=== PATIENT | male | born 1980 | race Two or more races ===

== ENCOUNTER 2023-11-20 19:54 | Emergency (ER) | payer MEDICAID ==
[~2023-11-20] VITALS: Ht 162.6 cm; Wt 69.2 kg
[2023-11-20 21:32] LABS: Urine Amorphous Crystal FEW /hpf (None Seen); Urine Bacteria FEW /hpf (None Seen); Urine Blood TRACE /uL (Negative); Urine Clarity Ex.Turbid (Clear); Urine Color Orange (Yellow); Urine Mucus FEW (None Seen); Urine Protein, UAD 2+ (Negative); Urine Specific Gravity 1.029 (1.001-1.035); Urine Urobilinogen 2 mg/dL (Negative); Urine WBC 44 /hpf (0 - 3); Urine WBC Clumps PRESENT /hpf (None Seen); Urine pH 5.5 (5.0-9.0)
[2023-11-20 23:25] LABS: Basophils # (auto) 0 10 ^3/uL (0-0.2); Basophils % (auto) 0.2 % (0.0-2.0); Eosinophils # (auto) 0 10 ^3/uL (0-0.8); Hematocrit 47.2 % (41.0-53.0); Hemoglobin 15.9 g/dL (13.5-17.5); Lymphocytes # (auto) 0.8 10 ^3/uL (0.4-5.4); Lymphocytes % (auto) 7.1 % (10.0-50.0); Mean Corpuscular Hemoglobin 29.3 pg (28.0-32.0); Mean Corpuscular Hgb Conc. 33.6 g/dL (32.0-36.0); Mean Corpuscular Volume 87.1 fL (80.0-100.0); Monocytes # (auto) 0.6 10 ^3/uL (0-1.3); Monocytes % (auto) 5.2 % (0.0-12.0); Neutrophils # (auto) 10.5 10 ^3/uL (1.6-8.6); Neutrophils % (auto) 87.5 % (37.0-80.0); Platelet Count (auto) 192 10^3/uL (140-450); Red Blood Cells 5.42 10^6/uL (4.5-5.90); Red Cell Distribution Width 14.8 % (11.8-14.3)
[2023-11-20 23:41] LABS: Albumin 4.2 g/dL (3.2-4.8); Alkaline Phosphatase 53 U/L (46-116); Anion Gap 7 (5-15); Aspartate Aminotransferase 14 U/L (13-40); Bilirubin, Total 0.2 mg/dL (0.2-1.0); Calcium 9.3 mg/dL (8.7-10.4); Carbon Dioxide 23 mmol/L (20-30); Chloride 105 mmol/L (98-107); Glucose 99 mg/dL (74-106); Lipase 33 U/L (12-53); Potassium 3.9 mmol/L (3.5-5.1); Sodium 135 mmol/L (136-145); Total Protein 6.7 g/dL (5.7-8.2)
[2023-11-20 23:49] LABS: Blood Urea Nitrogen 9 mg/dL (9-23)
[2023-11-20 23:56] LABS: Alanine Aminotransferase < 9 U/L (7-40)
[2023-11-21 00:17] LABS: BUN/Creatinine Ratio 6.5 (10.0-20.0)
[2023-11-21 01:33] LABS: Amphetamine Screen, Urine Neg (NEGATIVE); Barbiturate Scree,Urine Neg (NEGATIVE); Benzodiazephine Screen, Urine Neg (NEGATIVE); Cocaine Screen, Urine Neg (NEGATIVE)
[2023-11-21 01:34] LABS: Cannabinoid Screen, Urine Pos (NEGATIVE); Opiate Scree,Urine Neg (NEGATIVE); Phencyclidine Screen, Urine Neg (NEGATIVE)
[2023-11-21] MEDS ORDERED: LEVO500T91 PO (04:21)
[2023-11-21] MEDS ORDERED: METR-344 PO (04:21)
[2023-11-21] MEDS: levoFLOXacin 500 MG TAB PO ONE (04:29)
[2023-11-21] MEDS: metroNIDAZOLE 500 MG TAB PO ONE (04:29)
[2023-11-21 05:01] VITALS: BP 102/66; TEMP 99.3
[2023-11-21 05:02] VITALS: PULSE 103; RESP 16; O2SAT 97
== END 2023-11-21 05:07 | disposition home or self-care (01) ==
LOC: ER 19:54
DX: K52.9 Noninfective gastroenteritis and colitis, unspecified (principal); R16.0 Hepatomegaly, not elsewhere classified; R18.8 Other ascites; F12.10 Cannabis abuse, uncomplicated; F15.10 Other stimulant abuse, uncomplicated; Z79.899 Other long term (current) drug therapy
CPT/HCPCS: 36415; 74176; 80053; 80307; 80320; 81001; 83690; 85025